=== PATIENT | female | born 1995 | race American Indian/Alaskan Native ===

== ENCOUNTER 2020-07-12 01:20 | Emergency (ER) | payer SELFPAY ==
[2020-07-12] MEDS ORDERED: ACETAMINOPHEN 500 MG TAB PO ONE (01:38)
[2020-07-12 01:44] VITALS: BP 121/71
--- NOTE | 2020-07-12 01:45 | Emergency Department Report ---
ED General Adult HPI - General Stated complaint: LEFT HAND/WRIST SWOLLEN/PAINFUL Time Seen by Provider: 07/12/20 01:38 Source: patient Limitations: No Limitations - History of Present Illness Initial comments: Patient 24-year-old -Citizen Of [place] female who presents for left arm pain. Patient denies fall injury or trauma. States symptoms for the past 2 days. Pain is described as 5/10 aching tingling. Pain is relieved by nothing tried. There is no distal numbness or tingling distal pulses are intact - Related Data Previous Rx's Medication Instructions Recorded Last Taken Type Acetaminophen [Acetaminophen TAB] 1,000 mg PO Q4HR PRN #30 tablet 07/12/20 Unknown Rx Allergies Allergy/AdvReac Type Severity Reaction Status Date / Time NSAIDS (Non-Steroidal AdvReac Unknown Verified 07/12/20 01:44 Anti-Inflamma ED Review of Systems ROS: Stated complaint: LEFT HAND/WRIST SWOLLEN/PAINFUL Other details as noted in HPI Constitutional: denies: chills, fever Eyes: denies: eye pain, eye discharge, vision change ENT: denies: ear pain, throat pain Respiratory: denies: cough, shortness of breath, wheezing Cardiovascular: denies: chest pain, palpitations Endocrine: no symptoms reported Gastrointestinal: denies: abdominal pain, nausea, diarrhea Genitourinary: denies: urgency, dysuria, discharge Musculoskeletal: other (left thum bin). denies: back pain, joint swelling, arthralgia Skin: denies: rash, lesions Neurological: denies: headache, weakness, paresthesias Psychiatric: denies: anxiety, depression Hematological/Lymphatic: denies: easy bleeding, easy bruising ED Past Medical Hx - Medications Home Medications: Home Medications Medication Instructions Recorded Confirmed Last Taken Type Acetaminophen [Acetaminophen TAB] 1,000 mg PO Q4HR PRN #30 tablet 07/12/20 Unknown Rx ED Physical Exam - General General appearance: alert, in no apparent distress - Head Head exam: Present: atraumatic, normocephalic - Eye Eye exam: Present: normal appearance, PERRL, EOMI Pupils: Present: normal accommodation - ENT ENT exam: Present: normal exam, mucous membranes moist - Neck Neck exam: Present: normal inspection, tenderness. Absent: lymphadenopathy - Respiratory Respiratory exam: Present: normal lung sounds bilaterally - Cardiovascular Cardiovascular Exam: Present: regular rate, normal rhythm, normal heart sounds. Absent: systolic murmur, diastolic murmur, rubs, gallop - GI/Abdominal GI/Abdominal exam: Present: soft, normal bowel sounds, bruit, hernia. 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 Absent: swelling, abrasion, laceration, ecchymosis, deformity, crepidus, dislocation, erythema, amputation, nail avulsion, subungual hematoma - Back Exam Back exam: Present: normal inspection, full ROM. Absent: tenderness, CVA tenderness (R), CVA tenderness (L) - Neurological Exam Neurological exam: Present: alert, oriented X3, normal gait - Psychiatric Psychiatric exam: Present: normal affect, normal mood - Skin Skin exam: Present: warm, dry, intact, normal color. Absent: rash ED Course Vital Signs 07/12/20 01:39 Temperature 99.1 F Pulse Rate 69 Respiratory 18 Rate Blood Pressure 121/71 O2 Sat by Pulse 95 Oximetry ED Medical Decision Making - Radiology Data Radiology results: image reviewed no fracture no dislocation no soft tissue abnormality. - Medical Decision Making This is a left thumb sprain x-rays negative for fracture, plan tylenol and as patient is nsaid allergic, tiger balm ointment prn pain , follow up with pcp if symptoms worsen. pt verbalized agreement and understanding of discharge plan. Critical care attestation.: If time is entered above; I have spent that time in minutes in the direct care of this critically ill patient, excluding procedure time. ED Disposition Clinical Impression: Left thumb sprain Qualifiers: Encounter type: initial encounter Sprain of finger site: unspecified site Qualified Code(s): S63.602A - Unspecified sprain of left thumb, initial encounter Disposition: TO HOME OR SELFCARE Is pt being admited?: No Does the pt Need Aspirin: No Condition: Stable Instructions: Finger Sprain (ED), Finger Sprain, Adult, [id number] Prescriptions: Acetaminophen [Acetaminophen TAB] 1,000 mg PO Q4HR PRN #30 tablet PRN Reason: pain Referrals: PRIMARY CAREMD [Primary Care Provider] - 3-5 Days ISI PAGAN MD [Staff Physician] - 3-5 Days Forms: Work/School Release Form(ED) Time of Disposition: 02:36
--- NOTE | 2020-07-12 02:58 | XRay Report ---
LEFT HAND 2 VIEW(S) INDICATION / CLINICAL INFORMATION: left thumb pain and swelling COMPARISON: None available. FINDINGS: BONES / JOINT(S): No acute fracture or subluxation. No significant arthritis. SOFT TISSUES: No significant abnormality. ADDITIONAL FINDINGS: None. Signer Name: Bianca Loza MD Signed: 07/12/2020 2:54 AM Workstation Name: [id number]
== END 2020-07-12 02:55 | disposition home or self-care (01) ==
LOC: ED 01:20
DX: S63.602A Unspecified sprain of left thumb, initial encounter (principal); Z79.899 Other long term (current) drug therapy; Z88.6 Allergy status to analgesic agent; X58.XXXA Exposure to other specified factors, initial encounter; Y93.89 Activity, other specified; Y92.89 Other specified places as the place of occurrence of the external cause; Y99.8 Other external cause status
CPT/HCPCS: 99283